=== PATIENT | female | born 2000 | race Caucasian/White ===

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

== ENCOUNTER 2024-07-24 16:16 | Outpatient (NON) | payer BC, SELFPAY ==
[2024-07-24 16:30] LABS: Add Urine Microscopic? YES; Appearance Urine Clear (Clear); Bilirubin Urine Negative (Negative); Blood Urine Negative (Negative); Color Urine Yellow (Yellow); Glucose Urine UA Negative (Negative); Ketones Urine Negative (Negative); Leukocyte Esterase Ur Trace LEU/UL (Negative); Nitrate Urine Negative (Negative); Protein Urine Negative (Negative); Specific Grav Ur >= 1.030 (1.010-1.020); Urobilinogen Urine 0.2 mg/dL (0.2-1.0)
[2024-07-24 16:40] LABS: Bacteria Urine Trace /hpf; RBC Urine 0-2 /hpf (0-2); Squamous Epithelial Cell Urine Few /hpf (Few)
== END 2024-07-24 16:17 | disposition home or self-care (01) ==
PROVIDERS: PCP Nurse Practitioner Family; Visit Provider Nurse Practitioner Family
DX: R10.9 Unspecified abdominal pain (principal)
CPT/HCPCS: 81001

== ENCOUNTER 2024-08-07 07:44 | Outpatient (CLI) | payer BC, SELFPAY ==
--- NOTE | ~2024-08-07 | US_ITS ---
Abdominal Sonogram: Real-time sonographic imaging of the abdomen was performed. Clinical History: Abdominal pain Findings: The liver appears normal with no evidence of mass lesion or bile duct dilatation. Main por meenakshi vein demonstrates normal direction of flow. The spleen is normal in size without evidence of foca l lesion. The gallbladder is well distended, and appears normal with no evidence of gallstone or wal l thickening. The common bile duct measures 3 mm. The visualized pancreas, aorta, and IVC are unrema rkable. The right kidney measures 11.4 cm in length and the left kidney measures 12.3 cm. There is no hydronephrosis or renal calculus. Impression: Unremarkable abdominal ultrasound. Reviewed, dictated and finalized at location . Impression: Unremarkable abdominal ultrasound.
[2024-08-07 08:01] LABS: Basophils Absolute Auto 0.03 K/mm3 (0.00-0.10); Basophils Percent Auto 0.3 % (0.0-1.0); Eosinophils Absolute Auto 0.13 K/mm3 (0.02-0.50); Eosinophils Percent Auto 1.2 % (1.0-6.0); Hematocrit 38.8 % (35.0-49.0); Hemoglobin 13.3 g/dL (12.0-15.0); Immature Granulocyte Absolute 0.03 K/mm3 (0.00-0.00); Immature Granulocyte Percent A 0.3 % (0.0-0.0); Lymphocytes Absolute Auto 1.88 K/mm3 (1.10-4.50); Lymphocytes Percent Auto 17.5 % (18.0-42.0); Mean Corpuscular HGB Conc 34.3 g/dL (32-36); Mean Corpuscular Hemoglobin 29.7 pg (27.0-31.0); Mean Corpuscular Volume 86.6 fL (78.0-102.0); Mean Platelet Volume 9.3 fl (9.2-11.8); Monocytes Absolute Auto 0.73 K/mm3 (0.10-0.90); Monocytes Percent Auto 6.8 % (2.0-11.0); Neutrophils Absolute Auto 7.92 K/mm3 (1.70-7.20); Neutrophils Percent Auto 73.9 % (50.0-70.0); Platelet Count Result 401 K/mm3 (150-420); Red Blood Count 4.48 M/mm3 (4.20-5.40); Red Cell Distribution Width 12.1 % (11.6-14.4); White Blood Count 10.7 K/mm3 (4.8-10.8)
[2024-08-07 08:53] LABS: Alanine Aminotransferase 15 U/L (14-59); Albumin Level 3.7 g/dL (3.4-5.0); Alkaline Phosphatase 63 U/L (46-116); Amylase 37 U/L (25-115); Anion Gap 10 mmol/L (4-12); Aspartate Amino Transferase 11 U/L (15-37); Bilirubin,Total 0.4 mg/dL (0.00-1.00); Blood Urea Nitrogen 6 mg/dL (7-18); Calcium 9.1 mg/dL (8.5-10.1); Carbon Dioxide 28 mmol/L (21-32); Chloride 103 mmol/L (98-108); Estimated Glomerular Filt Rate > 60; Glucose 88 mg/dL (70-99); Lipase 31 U/L (16-77); Osmolality Calculated 288 mOsm/kg (285-295); Potassium 4.1 mmol/L (3.5-5.1); Sodium 141 mmol/L (136-145); Total Protein 7.3 g/dL (6.4-8.2)
== END 2024-08-07 07:45 | disposition home or self-care (01) ==
LOC: CHSIMG 07:46
PROVIDERS: PCP Nurse Practitioner Family; Visit Provider Nurse Practitioner Family
DX: R11.2 Nausea with vomiting, unspecified (principal); R10.9 Unspecified abdominal pain; I10 Essential (primary) hypertension
CPT/HCPCS: 36415; 76700; 80053; 82150; 83690; 85025

== ENCOUNTER 2024-08-08 01:43 | Emergency (ER) | payer BC, SELFPAY ==
[2024-08-08 01:45] VITALS: BP 127/90; PULSE 116; RESP 18; TEMP 36.2; O2SAT 96
--- NOTE | 2024-08-08 01:59 | ED.SKABFB ---
HPI - Skin/Abscess/Foreign Bdy General Chief complaint: Skin/Abscess/Foreign Body Stated complaint: skin issue Source: patient Mode of arrival: ambulatory Limitations: no limitations History of Present Illness HPI narrative: 24 years old white female complaining of pain at the tail bone area started few days ago, severely tender to touch, unable to sit which cause severe exacerbation of the pain. Patient denies any trauma, FEVER, CHILLS, NAUSEA, VOMITING. Related Data Allergies Allergy/AdvReac Type Severity Reaction Status Date / Time amoxicillin Allergy Mild c diff Verified 08/08/24 01:50 Latex, Natural Rubber Allergy Mild rash Verified 08/08/24 01:50 Review of Systems Review of Systems: All systems reviewed & are unremarkable except as noted in HPI and below PMFSH Past Medical History Medical History Obesity, Class II, BMI 35-39.9 Contraception management Surgical History Surgical History No history of previous surgery Family History Family History Mother Cervical cancer Social History Social History Smoking status: Never smoker Alcohol intake: never Substance use: never Substance use type: does not use Lack of Transportation: No Lack of Food: Never True Current Housing: I Have Housing Concerned About Future Housing: No Difficulty Paying Gas/Electric Bills: No Difficulty Paying for Meds: Decline to Answer Currently Unemployed: No Education: High School Diploma/GED Difficulty w/ Childcare or Family Care: No Living arrangements: with family Additional living arrangements comments: with boyfriend Occupation/Education: occupation Additional occupation/education comments: cook Gender identity (if verbalized by the patient): Female Spiritual care concerns: No Exam Narrative: General appearance: Well-developed, well-nourished Skin: Normal color , severe tenderness at the tailbone with light palpation, no erythema, no swelling, no discharge Chest and respiratory: Airway patent, no respiratory distress, no accessory muscle use Heart: Regular rate/rhythm Abdomen: Soft, nontender, no organomegaly, quiet bowel sounds Musculoskeletal: Normal range of motion, nontender back Neurologic: Alert and oriented ?3, [employer] is normal as tested, no gross motor deficit Course Vital Signs Vital signs: Vital Signs Temperature 36.2 C L 08/08/24 01:45 Pulse Rate 116 H 08/08/24 01:45 Respiratory Rate 18 08/08/24 01:45 Blood Pressure 127/90 08/08/24 01:45 Pulse Oximetry 96 08/08/24 01:45 Oxygen Delivery Room Air 08/08/24 01:45 Temperature 36.2 C L 08/08/24 01:45 Pulse Rate 116 H 08/08/24 01:45 Respiratory Rate 18 08/08/24 01:45 Blood Pressure 127/90 08/08/24 01:45 Pulse Oximetry 96 08/08/24 01:45 Oxygen Delivery Room Air 08/08/24 01:45 Procedures Abscess I/D other: Date of Incision: 08/08/24 Time of Incision: 02:54 Sedation/analgesia: none Local Anesthetic: lidocaine 1% and with epi Amount of anesthesia used (mL): 5 Technique: needle aspiration, incised with #11 blade and probed loculations Amount of fluid expressed (mL): 5 Irrigation: No Packing used?: iodoform I&D Results: Pus and Blood Complications: pain Abcess I&D Additional Comments: 1 CM INCISION MDM - Skin/Abscess/Foreign Bdy MDM Narrative Medical decision making narrative: PATIENT PRESENTS WITH TENDERNESS AT THE TAIL BONE /IN BILI NEEDLE CYST AREA VITAL SIGN SHOWING HEART RATE OF 116 OTHERWISE WITHIN NORMAL LIMIT PHYSICAL EXAMINATION SHOWING SEVERE TENDERNESS AT THE TAILBONE AREA /BILI NEEDLE CYST AREA DIFFERENTIAL DIAGNOSIS COLOR NEEDLE ABSCESS INCISION AND DRAINAGE, PURULENT BLOODY DISCHARGE, IUD FORM PACK, PATIENT RECEIVED 1 TABLET OF CLINDAMYCIN PRIOR TO DISCHARGE FOLLOW-UP WITH SURGERY IN 2- 3 DAYS Differential Diagnosis Differential diagnosis: Likely other ( ABOVE) Critical Care Time Critical Care Time Critical Care Time: No Discharge Plan Discharge Clinical Impression: Pilonidal abscess Patient Disposition: Home Condition: Stable Instructions: Abscess (ED) Additional Instructions: Return if symptoms are worsening , call DR STAUFFER FOR APPOINTMENT, take Tylenol as as needed for aches and pain, continue home medications. Remove the pack in 48 hours Patient Language: Lithuanian Prescriptions: New clindamycin HCl [Cleocin HCl] 300 mg capsule 300 mg PO Q6H 7 Days Qty: 28 0RF No Action albuterol sulfate [Ventolin HFA] 90 mcg/actuation HFA aerosol inhaler 1 inh inhalation Q6H PRN (Reason: shortness of breath or wheezing) Qty: 8.5 0RF Follow-up/Referrals: Doreen Pride NP [Primary Care Provider] - Stand Alone Forms: Work/School Release IP
[2024-08-08] MEDS: LIDO 1%/EPINEPHRINE 1:100,000 20 ML VIAL 10 ML INFILTRATE (02:19)
--- NOTE | 2024-08-08 02:45 | PC.NURSE ---
ERP lanced and drained gluteal fold abscess then packed with idoform. Area covered with large band aid. Swab taken to lab.
[2024-08-08] MEDS: CLINDAMYCIN HCL 150 MG CAP 300 MG PO (02:51)
[2024-08-08 03:25] VITALS: BP 128/89; PULSE 95; RESP 16; TEMP 36.4; O2SAT 100
--- NOTE | 2024-08-09 12:45 | PC.NURSE ---
PRELIMINARY ANAEROBIC CULTURE RESULTS: GRAM STAIN: MANY WHITE BLOOD CELLS SEEN MANY MIXED BACTERIAL KIANA
--- NOTE | 2024-08-10 21:26 | PC.NURSE ---
2nd prelim report received, anaerobic cx: Many WBC seen and many mixed bacterial joanie, Aerobic cx w/ Gm stain: Growth of skin joanie. Awaiting final results.
== END 2024-08-08 03:20 | disposition home or self-care (01) ==
PROVIDERS: Emergency Provider Emergency Medicine; PCP Nurse Practitioner Family
DX: L05.01 Pilonidal cyst with abscess (principal)
CPT/HCPCS: 10080; 87070; 87075; 87205; 99283; J2004